=== PATIENT | female | born 1960 | race Caucasian/White ===

== ENCOUNTER 2018-09-08 09:09 | Emergency (ER) | payer SELFPAY ==
[~2018-09-08] VITALS: Ht 167.6 cm; Wt 95.3 kg
[2018-09-08 09:14] VITALS: Ht 167.6 cm; Wt 95.3 kg
[2018-09-08 10:45] VITALS: BP 154/101
== END 2018-09-08 10:45 | disposition home or self-care (01) ==
LOC: ED 09:09
DX: S92.512A Displaced fracture of proximal phalanx of left lesser toe(s), initial encounter for closed fracture (principal); G43.909 Migraine, unspecified, not intractable, without status migrainosus; W22.03XA Walked into furniture, initial encounter; Y93.89 Activity, other specified; Y92.89 Other specified places as the place of occurrence of the external cause; Y99.8 Other external cause status